=== PATIENT | female | born 1990 | race American Indian/Alaskan Native ===

== ENCOUNTER 2017-07-08 10:29 | Emergency (ER) | payer OTHER ==
--- NOTE | 2017-07-08 13:36 | Emergency Department Report ---
ED General Adult HPI - General Chief complaint: Pain General Stated complaint: SHORTNESS OF BREATH, VOMITTING,FATIGUE Time Seen by Provider: 07/08/17 13:08 Source: patient Mode of arrival: Ambulatory Limitations: No Limitations - Related Data Allergies Allergy/AdvReac Type Severity Reaction Status Date / Time ibuprofen AdvReac Unknown Verified 07/08/17 10:38 ED Review of Systems ROS: Stated complaint: SHORTNESS OF BREATH, VOMITTING,FATIGUE Other details as noted in HPI ED Past Medical Hx - Past Medical History Previous Medical History?: No - Surgical History Hx Cholecystectomy: Yes Additional Surgical History: C/S - Social History Smoking Status: Current Every Day Smoker Substance Use Type: None ED Physical Exam - General Limitations: No Limitations ED Course Vital Signs 07/08/17 10:38 Temperature 98.3 F Pulse Rate 91 H Respiratory 18 Rate Blood Pressure 126/72 O2 Sat by Pulse 97 Oximetry Critical care attestation.: If time is entered above; I have spent that time in minutes in the direct care of this critically ill patient, excluding procedure time. ED Disposition Condition: Stable Referrals: PRIMARY CARE [Primary Care Provider] - 3-5 Days
--- NOTE | 2017-07-08 14:00 | Emergency Department Report ---
Chief Complaint: Pain General Stated Complaint: cc: nausea, vomited once today, 2wice yesterday. LMP was 2017 Time Seen by Provider: 07/08/17 13:08 - HPI History of Present Illness: Pt has cc of 2 weeks of nausea, occasional vomiting, some r flank pain-none now. Pt has hx of cholecystectomy. Pt is alert, has supple neck, normal heart sounds normal equal bs bl abdomen is NT NR pt denies vag bleed and DC pt is preg - ROS Review of Systems: ros neg except nausea and vom pt denies cp and sob - Exam Vital Signs: Vital Signs 07/08/17 10:38 Temperature 98.3 F Pulse Rate 91 H Respiratory 18 Rate Blood Pressure 126/72 O2 Sat by Pulse 97 Oximetry MSE screening note: Focused history and physical exam performed. Due to findings the following was ordered: pt had question of mild cva tenderess- ua ordered pt has hx consistent with , mild nausea vom= labs ordered pt has some pelvic discomfort/cramping= ob us ordered. ED Disposition for MSE Condition: Stable Referrals: PRIMARY CARE, [Primary Care Provider] - 3-5 Days
--- NOTE | 2017-07-08 14:13 | Emergency Department Report ---
ED Female HPI - General Chief complaint: Pain General Stated complaint: cc: nausea, vomited once today, 2wice yesterday. LMP was 2017 Time Seen by Provider: 07/08/17 13:08 Source: patient Mode of arrival: Ambulatory Limitations: No Limitations - Related Data Allergies Allergy/AdvReac Type Severity Reaction Status Date / Time ibuprofen AdvReac Unknown Verified 07/08/17 10:38 ED Review of Systems ROS: Stated complaint: cc: nausea, vomited once today, 2wice yesterday. LMP was 2017 Other details as noted in HPI ED Past Medical Hx - Past Medical History Previous Medical History?: No - Surgical History Hx Cholecystectomy: Yes Additional Surgical History: C/S - Social History Smoking Status: Current Every Day Smoker Substance Use Type: None ED Physical Exam - General Limitations: No Limitations ED Course Vital Signs 07/08/17 10:38 Temperature 98.3 F Pulse Rate 91 H Respiratory 18 Rate Blood Pressure 126/72 O2 Sat by Pulse 97 Oximetry Critical care attestation.: If time is entered above; I have spent that time in minutes in the direct care of this critically ill patient, excluding procedure time. ED Disposition Condition: Stable Referrals: PRIMARY CARE, [Primary Care Provider] - 3-5 Days
--- NOTE | 2017-07-08 14:15 | Emergency Department Report ---
ED General Adult HPI - General Chief complaint: Pain General Stated complaint: cc: nausea, vomited once today, 2wice yesterday. LMP was 2017 Time Seen by Provider: 07/08/17 13:08 Source: patient Mode of arrival: Ambulatory Limitations: No Limitations - History of Present Illness Initial comments: Patient airport vomiting in cold sweats for 2 weeks. She says she vomited last this morning. Denies any abdominal or back pain. 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 Denies any cough, shortness of breath or chest pain. Patient is her for parents 3. Denies any history of or problems with previous . Denies any vaginal bleeding or concerns for STD. Denies any dizziness. She says she's been taking Tylenol for headache but it hasn't been helping. Nothing makes it better and nothing makes it worse. Denies any urinary burning, frequency or urgency. When asked, patient only drinks 2 glasses of water daily. Denies any swelling to her legs. Denies any blood in her urine. Denies any history of diabetes. It is mentioned in triage note the patient reports shortness of breath but patient denies any shortness of breath or any cold symptoms. MD Complaint: vomiting, cold sweats and headache on and off 2 weeks Onset/Timin -: week(s) Location: head Radiation: non-radiation Severity scale (0 -10): 2 Quality: aching Consistency: intermittent Improves with: none Worsens with: none Associated Symptoms: headaches, nausea/vomiting, other (cold sweats). denies: confusion, chest pain, cough, diaphoresis, fever/chills, loss of appetite, malaise, rash, seizure, shortness of breath, syncope, weakness Treatments Prior to Arrival: other (Tylenol) - Related Data Previous Rx's Medication Instructions Recorded Last Taken Type Cephalexin [Keflex] 500 mg PO Q12HR 5 Days #10 cap 07/08/17 Unknown Rx Ondansetron [Zofran Odt] 4 mg PO Q8H PRN #12 tab.rapdis 07/08/17 Unknown Rx Vit No.130/Iron/Folic 1 each PO QAM 30 Days #30 tablet 07/08/17 Unknown Rx [ Tablet] Allergies Allergy/AdvReac Type Severity Reaction Status Date / Time ibuprofen AdvReac Unknown Verified 07/08/17 10:38 ED Review of Systems ROS: Stated complaint: cc: nausea, vomited once today, 2wice yesterday. LMP was 2017 Other details as noted in HPI Comment: All other systems reviewed and negative Constitutional: other (cold sweat) Eyes: denies: eye discharge ENT: denies: ear pain, throat pain, hearing loss, epistaxis, congestion Respiratory: no symptoms reported Cardiovascular: denies: chest pain, palpitations, dyspnea on exertion, orthopnea , edema, syncope, paroxysmal nocturnal dyspnea Gastrointestinal: nausea, vomiting. denies: abdominal pain, diarrhea, constipation, hematemesis, melena, hematochezia Genitourinary: denies: urgency, dysuria, frequency, hematuria, discharge, abnormal menses, dyspareunia Musculoskeletal: denies: back pain, joint swelling, arthralgia, myalgia Skin: denies: rash Neurological: headache. denies: weakness, numbness, paresthesias, confusion, abnormal gait, vertigo ED Past Medical Hx - Past Medical History Previous Medical History?: No - Surgical History Hx Cholecystectomy: Yes Additional Surgical History: C/S - Family History Family history: hypertension - Social History Smoking Status: Current Every Day Smoker Substance Use Type: None - Medications Home Medications: Home Medications Medication Instructions Recorded Confirmed Last Taken Type Cephalexin [Keflex] 500 mg PO Q12HR 5 Days #10 cap 07/08/17 Unknown Rx Ondansetron [Zofran Odt] 4 mg PO Q8H PRN #12 tab.rapdis 07/08/17 Unknown Rx Vit No.130/Iron/Folic 1 each PO QAM 30 Days #30 tablet 07/08/17 Unknown Rx [ Tablet] ED Physical Exam - General Limitations: No Limitations General appearance: alert, in no apparent distress - Head Head exam: Present: atraumatic, normocephalic, normal inspection, other (normal exam) - Eye Eye exam: Present: normal appearance, PERRL, EOMI. Absent: nystagmus, periorbital swelling, periorbital tenderness Pupils: Present: normal accommodation - ENT ENT exam: Present: normal orophraynx, mucous membranes moist, TM's normal bilaterally, normal external ear exam - Neck Neck exam: Present: normal inspection, full ROM, other (no C-spine tenderness). Absent: tenderness, meningismus, lymphadenopathy - Respiratory Respiratory exam: Present: normal lung sounds bilaterally. Absent: respiratory distress, wheezes, rales, rhonchi, stridor, chest wall tenderness, accessory muscle use, decreased breath sounds, prolonged expiratory - Cardiovascular Cardiovascular Exam: Present: regular rate, normal rhythm, normal heart sounds. Absent: systolic murmur, diastolic murmur - GI/Abdominal GI/Abdominal exam: Present: soft, normal bowel sounds. Absent: distended, tenderness, guarding, rebound, rigid, organomegaly, mass, bruit, pulsatile mass , hernia - Extremities Exam Extremities exam: Present: normal inspection, full ROM, normal capillary refill , other (clubbing, cyanosis or edema. Distal pulses all extremities and no neurovascular compromise). Absent: tenderness, pedal edema, joint swelling, calf tenderness - Back Exam Back exam: Present: normal inspection, full ROM, other (no CVA tenderness. Ambulates without any difficulties). Absent: tenderness, CVA tenderness (R), CVA tenderness (L), muscle spasm, paraspinal tenderness, vertebral tenderness, rash noted - Neurological Exam Neurological exam: Present: alert, oriented X3, normal gait, reflexes normal. Absent: motor sensory deficit - Expanded Neurological Exam Expanded Neurological exam: Absent: innattentive, memory loss-remote event, memory loss- recent event, ataxia, receptive aphasia, expressive aphasia, total aphasia, tremor, protecting the airway Patient oriented to: Present: person, place, time Speech: Present: fluid speech Cranial nerves: EOM's Intact: Normal, Gag Reflex: Normal, Tongue Deviation: Normal, Nystagmus: Normal, Facial Sensation: Normal Cerebellar function: Finger to Nose: Normal, [place]: Normal Upper motor neuron: Pronator Drift: Normal, Sensory Extinction: Normal Sensory exam: Upper Extremity Light Touch: Normal, Upper Extremity Temperature: Normal, UE 2 Point Discrimination: Normal, Lower Extremity Light Touch: Normal, Lower Extremity Temperature: Normal, LE 2 Point Discrimination: Normal Motor strength exam: RUE: 5, LUE: 5, RLE: 5, LLE: 5 DTR: bicep (R): 2+, bicep (L): 2+, tricep (R): 2+, tricep (L): 2+, knee (R): 2+ , knee (L): 2+, ankle (R): 2+, ankle (L): 2+ Best Eye Response ([place]): (4) open spontaneously Best Motor Response ([place]): (6) obeys commands Best Verbal Response ([place]): (5) oriented [place] Total: 15 - Psychiatric Psychiatric exam: Present: normal affect, normal mood - Skin Skin exam: Present: warm, dry, intact, normal color. Absent: rash ED Course Vital Signs 07/08/17 10:38 Temperature 98.3 F Pulse Rate 91 H Respiratory 18 Rate Blood Pressure 126/72 O2 Sat by Pulse 97 Oximetry Vital Signs 07/08/17 07/08/17 10:38 17:56 Temperature 98.3 F 98.6 F Pulse Rate 91 H 68 Respiratory 18 20 Rate Blood Pressure 126/72 Blood Pressure 121/87 [Right] O2 Sat by Pulse 97 100 Oximetry - Reevaluation(s) Reevaluation #1: 07/08/17 17:53 Patient given morphine 2 mg IV, Zofran 4 mg IV and IV fluids 1 L along with by mouth challenge of 4 cups of apple juice in the emergency room and tolerated well. She says she is feeling a lot better. ED Medical Decision Making - Lab Data Result diagrams: 07/08/17 14:42 07/08/17 14:42 Lab Results 07/08/17 07/08/17 07/08/17 Range/Units 14:22 14:42 14:42 WBC 13.7 H (4.5-11.0) K/mm3 RBC 4.29 (3.65-5.03) M/mm3 Hgb 12.1 (10.1-14.3) gm/dl Hct 37.8 (30.3-42.9) % MCV 88 (79-97) fl MCH 28 (28-32) pg MCHC 32 (30-34) % RDW 14.4 (13.2-15.2) % Plt Count 263 (140-440) K/mm3 Lymph % (Auto) 15.3 (13.4-35.0) % [place] % (Auto) 5.3 (0.0-7.3) % Eos % (Auto) 0.2 (0.0-4.3) % Baso % (Auto) 0.3 (0.0-1.8) % Lymph # 2.1 (1.2-5.4) K/mm3 [place] # 0.7 (0.0-0.8) K/mm3 Eos # 0.0 (0.0-0.4) K/mm3 Baso # 0.0 (0.0-0.1) K/mm3 Seg Neutrophils % 78.9 H (40.0-70.0) % Seg Neutrophils # 10.8 H (1.8-7.7) K/mm3 Sodium (137-145) mmol/L Potassium (3.6-5.0) mmol/L Chloride (98-107) mmol/L Carbon Dioxide (22-30) mmol/L Anion Gap mmol/L BUN (7-17) mg/dL Creatinine (0.7-1.2) mg/dL Estimated GFR ml/min BUN/Creatinine Ratio % Glucose (65-100) mg/dL Calcium (8.4-10.2) mg/dL Total Bilirubin (0.1-1.2) mg/dL AST (5-40) units/L ALT (7-56) units/L Alkaline Phosphatase (35-129) units/L Total Protein (6.3-8.2) g/dL Albumin (3.9-5) g/dL Albumin/Globulin Ratio % HCG, Quant 108707 H (0-4) mIU/mL Urine Color Yellow (Yellow) Urine Turbidity Clear (Clear) Urine pH 5.0 (5.0-7.0) Ur Specific [place] 1.032 H (1.003-1.030) Urine Protein 30 mg/dl (Negative) mg/dL Urine Glucose (UA) Neg (Negative) mg/dL Urine Ketones 80 (Negative) mg/dL Urine Blood Sm (Negative) Urine Nitrite Neg (Negative) Urine Bilirubin Neg (Negative) Urine Urobilinogen < 2.0 (<2.0) mg/dL Ur Leukocyte Esterase Neg (Negative) Urine WBC (Auto) 3.0 (0.0-6.0) /HPF Urine RBC (Auto) 8.0 (0.0-6.0) /HPF U Epithel Cells (Auto) 19.0 H (0-13.0) /HPF Urine Bacteria (Auto) 1+ (Negative) /HPF Urine Mucus 3+ /HPF Urine HCG, Qual Negative (Negative) Blood Type 07/08/17 07/08/17 Range/Units 14:42 14:42 WBC (4.5-11.0) K/mm3 RBC (3.65-5.03) M/mm3 Hgb (10.1-14.3) gm/dl Hct (30.3-42.9) % MCV (79-97) fl MCH (28-32) pg MCHC (30-34) % RDW (13.2-15.2) % Plt Count (140-440) K/mm3 Lymph % (Auto) (13.4-35.0) % [place] % (Auto) (0.0-7.3) % Eos % (Auto) (0.0-4.3) % Baso % (Auto) (0.0-1.8) % Lymph # (1.2-5.4) K/mm3 [place] # (0.0-0.8) K/mm3 Eos # (0.0-0.4) K/mm3 Baso # (0.0-0.1) K/mm3 Seg Neutrophils % (40.0-70.0) % Seg Neutrophils # (1.8-7.7) K/mm3 Sodium 136 L (137-145) mmol/L Potassium 3.7 (3.6-5.0) mmol/L Chloride 98.7 (98-107) mmol/L Carbon Dioxide 21 L (22-30) mmol/L Anion Gap 20 mmol/L BUN 7 (7-17) mg/dL Creatinine 0.4 L (0.7-1.2) mg/dL Estimated GFR > 60 ml/min BUN/Creatinine Ratio 18 % Glucose 78 (65-100) mg/dL Calcium 9.2 (8.4-10.2) mg/dL Total Bilirubin 0.40 (0.1-1.2) mg/dL AST 31 (5-40) units/L ALT 60 H (7-56) units/L Alkaline Phosphatase 66 (35-129) units/L Total Protein 7.5 (6.3-8.2) g/dL Albumin 4.3 (3.9-5) g/dL Albumin/Globulin Ratio 1.3 % HCG, Quant (0-4) mIU/mL Urine Color (Yellow) Urine Turbidity (Clear) Urine pH (5.0-7.0) Ur Specific [place] (1.003-1.030) Urine Protein (Negative) mg/dL Urine Glucose (UA) (Negative) mg/dL Urine Ketones (Negative) mg/dL Urine Blood (Negative) Urine Nitrite (Negative) Urine Bilirubin (Negative) Urine Urobilinogen (<2.0) mg/dL Ur Leukocyte Esterase (Negative) Urine WBC (Auto) (0.0-6.0) /HPF Urine RBC (Auto) (0.0-6.0) /HPF U Epithel Cells (Auto) (0-13.0) /HPF Urine Bacteria (Auto) (Negative) /HPF Urine Mucus /HPF Urine HCG, Qual (Negative) Blood Type O POSITIVE Urine culture pending - Medical Decision Making ED course: She did complain NF nausea vomiting in the cold sweats 2 weeks. Headache taken Tylenol without any relief. This comes and goes. Patient says she has not had her period since 05/28/2017 and suspect that she is . Denies any concern for STDs or denies any abdominal pain, back pain, vaginal bleeding or discharge. Patient has 3 pregnancies that were not complicated. She still smokes and smoking cessation encouraged. Auditory findings for dehydration, patient's quantitative and ultrasound findings the patient of 8 weeks IUP, complex cyst to right ovary left ovary is normal. Cervix is normal. Small subchorionic hemorrhage. hearts beating about 158 bpm. Patient found to have dehydration with ketones of 80 and small amount of oral intake based on information given by patient. Patient with small amount of blood in her urine along with 1+ bacteria so we'll treat for UTI with Keflex 5 days. Her urine was contaminated with epithelial cell and cultures were sent. She was given IV fluid normal saline 1 L, Zofran 4 mg IV and morphine 2 mg IV which relieved her headache. Please refer to laboratory section for detailed lab and radiology section for detail and ultrasounds. I discussed laboratory findings, ultrasound findings and diagnosis would need to follow up with FINGER GRIP MACHINE OPERATOR with patient and she voiced understanding. So discussed with her that this consider a threatened miscarriage due to small subchorionic bleed and cuff or the fact that she smokes she is at high risk for miscarriage. I discussed smoking cessation with her and inform her that she needs to be on vitamin. Patient referred to FINGER GRIP MACHINE OPERATOR anterior prescription for vitamin and Zofran. She is able to tolerate oral apple juice emergency room without nausea or vomiting. Patient says she feels much better Critical care attestation.: If time is entered above; I have spent that time in minutes in the direct care of this critically ill patient, excluding procedure time. ED Disposition Clinical Impression: Right ovarian cyst Disposition: DC-01 TO HOME OR SELFCARE Is pt being admited?: No Does the pt Need Aspirin: No Condition: Stable Instructions: Threatened Miscarriage (ED), How to Stop Smoking (ED), Secondhand Smoke Exposure in Children (ED), Acute Nausea and Vomiting (ED), Ovarian Cyst (ED), Dehydration (ED) Additional Instructions: Follow-up with FINGER GRIP MACHINE OPERATOR as instructed at [facility]. Please call OB /BRAKE ADJUSTER office Monday disclose an appointment for care Drink at least 2-3 L of water daily to prevent dehydration Take Keflex for bacteria and urine You also have a small amount of protein in her urine and will need to have repeat urinalysis at visit at [facility] Take Zofran for nausea and/or vomiting You are at risk for miscarriage due to small bleed in your placental area and smoking. Please stop smoking. Take vitamin as prescribed Prescriptions: Cephalexin [Keflex] 500 mg PO Q12HR 5 Days #10 cap Ondansetron [Zofran Odt] 4 mg PO Q8H PRN #12 tab.rapdis PRN Reason: Nausea And Vomiting Vit No.130/Iron/Folic [ Tablet] 1 each PO QAM 30 Days #30 tablet Referrals: PRIMARY CARE, [Primary Care Provider] - 3-5 Days [facility] [Outside] - 07/10/17 ([facility] has primary care and FINGER GRIP MACHINE OPERATOR.) Forms: Work/School Release Form(ED)
[2017-07-08 14:58] LABS: Bacteria,Urine 1+ /HPF (Negative); Bilirubin,Urine NEG (Negative); Blood,Urine SM (Negative); Color,Urine Yellow (Yellow); Mucus,Urine 3+ /HPF; Urobilinogen,Urine < 2.0 mg/dL (<2.0)
[2017-07-08] MEDS ORDERED: MORPHINE IV ONE (14:59)
[2017-07-08] MEDS ORDERED: NACL 0.9% 1000 ML 1,000 ML IV ONE ×2 (14:59→16:33)
[2017-07-08] MEDS ORDERED: ZOFRAN IV ONE (14:59)
[2017-07-08 15:02] LABS: HCG Qualitative,Urine Negative (Negative)
[2017-07-08 15:23] LABS: Basophils % (Auto) 0.3 % (0.0-1.8); Eosinophils % (Auto) 0.2 % (0.0-4.3); Hematocrit 37.8 % (30.3-42.9); Hemoglobin 12.1 gm/dl (10.1-14.3); Lymphocytes # (Auto) 2.1 K/mm3 (1.2-5.4); Lymphocytes % (Auto) 15.3 % (13.4-35.0); Mean Corpuscular HGB Conc 32 % (30-34); Mean Corpuscular Hemoglobin 28 pg (28-32); Mean Corpuscular Volume 88 fl (79-97); Monocytes # (Auto) 0.7 K/mm3 (0.0-0.8); Monocytes % (Auto) 5.3 % (0.0-7.3); Platelet Count 263 K/mm3 (140-440); Red Blood Count 4.29 M/mm3 (3.65-5.03); Red Cell Distribution Width 14.4 % (13.2-15.2)
[2017-07-08 15:32] LABS: Alanine Aminotransferase 60 units/L (7-56); Albumin 4.3 g/dL (3.9-5); BUN/Creatinine Ratio 18; Blood Urea Nitrogen 7 mg/dL (7-17); Calcium 9.2 mg/dL (8.4-10.2); Hemolysis Index 10
--- NOTE | 2017-07-08 17:32 | Ultrasound Report ---
FINAL REPORT PROCEDURE: US OB TRANSVAGINAL and transabdominal TECHNIQUE: Real-time transabdominal and transvaginal sonography of the uterus, placenta, amniotic fluid, adnexa, and fetus was performed with image documentation. Measurements were obtained to determine age/size. M-mode Doppler was used to document heartbeat. CPT 95299 and 28568 HISTORY: nausea/vomiting, cva tenderness COMPARISON: No prior studies are available for comparison. FINDINGS: ADDITIONAL GESTATION: None. CRL: 15.8 mm, which corresponds to a gestational age of: 8 weeks, 0 days. Yolk Sac: Normal. Embryonic Cardiac Activity: 158 beats per minute Gestational Sac: There is a small crescentic hypoechoic area adjacent to the gestational sac, likely a small subchorionic hemorrhage, measuring 1.7 x 0.3 x 2.3 centimeters Amniotic fluid: Normal. Cervix: Normal. Right Ovary: 2.2 centimeter complex cystic lesion Left Ovary: 1.1 centimeter Estimated delivery date: 02/17/2018 IMPRESSION: 1. Single live intrauterine gestation at approximately 8 weeks, 0 days. 2. EDC by US 02/17/2018 3. Complete anatomic survey at 18-20 weeks suggested.
--- NOTE | 2017-07-08 17:33 | Ultrasound Report ---
FINAL REPORT PROCEDURE: PROCEDURE: US OB TRANSVAGINAL and transabdominal TECHNIQUE: Real-time transabdominal and transvaginal sonography of the uterus, placenta, amniotic fluid, adnexa, and fetus was performed with image documentation. Measurements were obtained to determine age/size. M-mode Doppler was used to document heartbeat. CPT 58841 and 94548 HISTORY: nausea/vomiting, cva tenderness COMPARISON: No prior studies are available for comparison. FINDINGS: ADDITIONAL GESTATION: None. CRL: 15.8 mm, which corresponds to a gestational age of: 8 weeks, 0 days. Yolk Sac: Normal. Embryonic Cardiac Activity: 158 beats per minute Gestational Sac: There is a small crescentic hypoechoic area adjacent to the gestational sac, likely a small subchorionic hemorrhage, measuring 1.7 x 0.3 x 2.3 centimeters Amniotic fluid: Normal. Cervix: Normal. Right Ovary: 2.2 centimeter complex cystic lesion Left Ovary: 1.1 centimeter Estimated delivery date: 02/17/2018 IMPRESSION: 1. Single live intrauterine gestation at approximately 8 weeks, 0 days. 2. EDC by US 02/17/2018 3. Complete anatomic survey at 18-20 weeks suggested. TECHNIQUE: HISTORY: COMPARISON: FINDINGS: IMPRESSION:
[2017-07-08 17:57] VITALS: BP 121/87
== END 2017-07-08 18:10 | disposition home or self-care (01) ==
LOC: ED 10:29
DX: N83.201 Unspecified ovarian cyst, right side (principal); F17.200 Nicotine dependence, unspecified, uncomplicated; Z88.6 Allergy status to analgesic agent
CPT/HCPCS: 36415; 76801; 76817; 80053; 81001; 81025; 84702; 85025; 86900; 86901; 87086; 96361; 96374; 96375; 99284; J2270; J2405; J7030